=== PATIENT | male | born 1940 | race Caucasian/White ===

== ENCOUNTER 2018-05-24 21:31 | Inpatient (IN) | payer BC, MEDICARE ==
--- NOTE | 2018-05-24 21:42 | ERNOTE ---
Dyspnea - General Presenting Symptoms: shortness of breath Time Seen by Provider: 05/24/18 21:31 Source: patient, EMS Exam Limitations: no limitations - Immun/Allergies/Home Medications Immunizations: IMMUNIZATION HX Immunizations Up to Date unsure Allergies/Adverse Reactions: Allergies No Known Allergies Allergy (Verified 05/24/18 21:45) Home Medications: HOME MEDICATIONS Aspirin 81 mg PO DAILY 01/05/16 [Last Taken Unknown] Albuterol Sulfate/Ipratropium [Duoneb 2.5-0.5MG/3ML Soln] 3 ml IH QID PRN 05/24/18 [Last Taken Unknown] Amlodipine Besylate 10 mg PO DAILY 05/24/18 [Last Taken Unknown] Aspirin 81 mg PO DAILY 05/24/18 [Last Taken Unknown] Donepezil HCl [Aricept] 10 mg PO DAILY 05/24/18 [Last Taken Unknown] Escitalopram Oxalate [Lexapro] 10 mg PO DAILY 05/24/18 [Last Taken Unknown] Gabapentin [Neurontin] 600 mg PO BID 05/24/18 [Last Taken Unknown] Labetalol HCl [Trandate] 50 mg PO DAILY 05/24/18 [Last Taken Unknown] Vitamin B12 100 mg PO DAILY 05/24/18 [Last Taken Unknown] levETIRAcetam [Levetiracetam] 500 mg PO BID 05/24/18 [Last Taken Unknown] - History of Present Illness Narrative: Pt has had a cough for 10-14 days and today worsened. His daughter realized he had a temp and she found to be 106 f. EMS were called and found a temp of 104 f temporally. They applied ice packs and upon arrival his temp is 101.7 f (38.7 C). SaO2 upon EMS arrival at his house was 89-90 %, EMS applied 2L per NC and he is 94% upon arrival. Severity: moderate Treatment [employer]: paramedics Initiating event: Reports: upper resp illness Frequency of episodes: Reports: occassional episodes Modifying Factors - (Improves): Reports: oxygen Modifying Factors (Worsens): Reports: activity Associated Symptoms-Dyspnea: Denies: chest pain/discomfort, dizziness Review of Systems - Review of Systems Constitutional: Present: recent illness. Absent: fever - before today, chills EYE: Absent: vision changes ENT: Present: nose congestion, nasal drainage Respiratory: Present: shortness of breath, cough Cardiology: Absent: chest pain, palpitations Gastrointestinal/Abdominal: Absent: nausea, vomiting, abdominal pain Genitourinary: Absent: frequency, pain, dysuria Musculoskeletal: Absent: back pain, muscle pain Skin: Absent: rash Endocrine: Absent: excessive sweating, flushing Medical History (Last Updated 05/24/18 @ 21:53 by Emmanuelle Mobley, RN) History of COPD History of abdominal aortic aneurysm (AAA) History of dementia Hx of fracture of hip Hx of primary hypertension Hx of seizure disorder hx of hemmorrhagic stroke Surgical History: Surgical History (Last Updated 05/24/18 @ 21:53 by Emmanuelle Mobley, RN) History of AAA (abdominal aortic aneurysm) repair History of tonsillectomy and adenoidectomy Hx of right knee surgery Family History: Family History (Last Updated 05/24/18 @ 21:53 by Emmanuelle Mobley, RN) Other No pertinent family history Social History: Preferred Language Djiboutian Smoking Status Former smoker Abuse History No History of abuse Psych History No pertinent hx No Social History Section defined Physical Exam - Physical Exam General Appearance: Present: wd/wn, alert, no apparent distress Head Exam: Present: normal inspection, no evidence of injury Neck: Present: normal inspection, nontender, supple Respiratory: Present: no respiratory distress, no accessory muscle use, wheezing - expiratory occasional. Absent: chest tenderness Cardiovascular/Chest: Present: regular rate, rhythm, no murmur Gastrointestinal/Abdominal: Present: normal bowel sounds, nontender, nondistended Back Exam: Present: normal inspection, normal range of motion, no vertebral tenderness Extremity Exam: Present: normal inspection, normal range of motion, no edema Neurological Exam: Present: alert, oriented, normal mood/affect, no lynda r/sensory deficits Skin Exam: Present: normal color, warm/dry Lymphatic Exam: Present: no adenopathy ED Progress - Results and Orders Patient's Lab Results:: I have reviewed the patient's lab results. Results and Orders: Laboratory Tests 05/24/18 05/24/18 22:04 22:04 WBC 23.5 H Hgb 16.1 Hct 47.5 Plt Count 143 L Neutrophils % (Manual) 79 H Sodium 137 Potassium 4.4 Chloride 102 BUN 25 H Creatinine 1.53 H Random Glucose 138 H Calcium 8.7 Total Bilirubin 0.9 AST 30 ALT 26 Alkaline Phosphatase 102 B-Natriuretic Peptide 2597 H Total Protein 7.3 Albumin 3.6 Laboratory Tests 05/24/18 22:28 Lactic Acid, Venous 1.6 - Vital Signs Patient's Vital Signs:: I have reviewed the patient's vital signs. - EKG EKG: NSR, RBBB, unchanged from - 08/07/2014 EKG read: Interp. by me - X-Ray X-Ray #1 X-Ray: chest Interpretation: Interp. by me X-ray Comments: LORI infiltrate with mild vascular congestion. - Progress/Reassessment Progress:: Improved Progress Note-Subjective: 05/24/18 22:56 Spoke with the patient and family and they agree with admit. Spoke with Dr. Carter and she agrees with admit and planned treatment. Departure Clinical Impression: Pneumonia Qualifiers: Pneumonia type: due to unspecified organism Laterality: left Lung location: upper lobe of lung Qualified Code(s): J18.1 - Lobar pneumonia, unspecified organism Pulmonary edema Qualifiers: Chronicity: acute Qualified Code(s): J81.0 - Acute pulmonary edema - Departure Disposition: Still a patient Condition: Fair
[2018-05-24] MEDS ORDERED: ALBUTEROL SULFATE/IPRATROPIUM 3 ML NEBU IH ONE ×2 (21:51→21:55)
[2018-05-24 22:06] LABS: Hematocrit 47.5 % (42.0-52.0); Hemoglobin 16.1 gm/dL (13.5-18.0); Mean Cell Volume 92.2 fl (78-100); Mean Corpuscular Hemoglobin 31.3 pg (27-31); Mean Corpuscular Hgb Conc 33.9 g/dl (32-36); Mean Platelet Volume 9.7 fl (8-11.3); Platelet Count 143 K/mm3 (150-450); Red Blood Count 5.15 M/mm3 (4.7-6.0); Red Cell Distribution Width 13.2 % (11.5-14.0); White Blood Count 23.5 K/mm3 (4.0-10.5)
[2018-05-24 22:27] LABS: Albumin * 3.6 gm/dl (3.4-5.0); Anion Gap 13.3 mmol/L (6.8-13.8); BUN/Creatinine Ratio 16.3 (9.0-21.6); Bilirubin, Total 0.9 mg/dL (0.0-1.1); Ca. Corrected For Albumin 8.7 mg/dL (8.4-10.2); Calcium * 8.7 mg/dL (7.9-10.9); Carbon Dioxide 26.1 mmol/L (24-32.6); Potassium 4.4 mmol/L (3.4-4.6); Total Protein 7.3 gm/dL (6.2-8.2)
[2018-05-24 22:28] LABS: Total Cells Counted 100
[2018-05-24 22:30] LABS: Band 9 % (0-2.0); Lymphocyte 4 % (20-51); Monocyte 8 % (0-9); Neutrophil 79 % (42-75); Neutrophil # 18.6 K/mm3 (1.3-6.0); Platelet Estimate Decreased (NORMAL)
[2018-05-24 22:31] LABS: Dohle Bodies 1+
[2018-05-24] MEDS ORDERED: ACETAMINOPHEN 325 MG TABLET PO ONE (22:48)
[2018-05-24] MEDS ORDERED: ACETAMINOPHEN 325 MG TABLET ONE (22:51)
[2018-05-24] MEDS ORDERED: FUROSEMIDE 10 MG/ML VIAL ONE (23:00)
[2018-05-24] MEDS ORDERED: FUROSEMIDE 10 MG/ML VIAL IV ONE (23:00)
[2018-05-24] MEDS ORDERED: DOXYCYCLINE HYCLATE 100 MG in DEXTROSE 5 % IN WATER 100 ML IV SCH ×2 (23:15)
[2018-05-24] MEDS: NORMAL SALINE 1,000 ML IV PRN (23:35)
[2018-05-25] MEDS ORDERED: guaiFENesin 100 MG/5 ML BTL PO PRN (10:53)
[2018-05-25] MEDS ORDERED: ALBUTEROL SULFATE/IPRATROPIUM 3 ML NEBU IH PRN (10:58)
[2018-05-25] MEDS ORDERED: DONEPEZIL HCL 10 MG TABLET PO SCH (11:00)
--- NOTE | 2018-05-25 11:14 | HP ---
Chief Complaint - Chief Complaint Date of Service: 05/25/18 Time of Service: 11:02 Chief Complaint: I have a high fever and cough History of Present Illness: 78 y/o male with PMHx of COPD, Nicotine dependenc, AAA, Dementia, HTN, seizure disorder, Old hem. CVA, was to ER in an ambulance rubnes to progressive productive cough of white creamy sputum, several episodes of fever with temps reaching 106 last night. Px had to be treated with cooling measures when EMS arrived, and had to be administed O2 due to low saturation ranging 89-90% on room air. Px lives alone and was discovered by his daughter in the previously stated state, and EMS was called. Px has had various episodes of BKP requiring hospitalization. Medical History (Last Reviewed 05/25/18 @ 00:11 by Marcelina Noriega RN) Cerebral amyloid angiopathy History of COPD History of abdominal aortic aneurysm (AAA) History of dementia Hx of fracture of hip Hx of primary hypertension Hx of seizure disorder hx of hemmorrhagic stroke Surgical History: Surgical History (Last Reviewed 05/25/18 @ 00:11 by Marcelina Noriega RN) History of AAA (abdominal aortic aneurysm) repair History of tonsillectomy and adenoidectomy Hx of right knee surgery Family History: Family History (Last Updated 05/25/18 @ 00:13 by Marcelina Noriega RN) Sister Breast cancer Mother Hyperthyroidism Mother Heart problem Social History: Patient Lives/Resources Home Utilized Occupation Retired Preferred Language Yoruba Do you have any gnosticist or No cultural preference? Smoking Status Former smoker Have you smoked in the past 12 No months Do you dip or chew tobacco No Abuse History No History of abuse Psych History No pertinent hx Alcohol Use none Drug Use none No Social History Section defined Peds Patient Hx - Developmental: No Pertinent Hx Peds Patient Hx - Medical: No Pertinent Hx Peds Patient Hx - Cardiac/Respiratory: No Pertinent Hx Peds Patient Hx - Surgical: No Surgical History Patient History - Cancer: No Hx of Cancer Review Of Systems (GEN) - Review of Systems Generalized/Overall Review: Present: Weakness, Chills, Fever, Malaise EENTM: Present: No Symptoms Reported Respiratory: Present: Cough, Wheezing Cardiac: Present: No Symptoms Reported Abdominal: Present: No Symptoms Reported Genitourinary: Present: No Symptoms Reported Musculoskeletal: Present: No Symptoms Reported Neurological: Present: No Symptoms Reported Skin: Present: No Symptoms Reported Endocrine: Present: No Symptoms Reported Misc: All systems neg except as marked Immunizations: IMMUNIZATION HX Immunizations Up to Date Yes History of Influenza Vaccine No Allergies/Adverse Reactions: Allergies Allergy/AdvReac Type Severity Reaction Status Date / Time No Known Allergies Allergy Verified 05/24/18 21:45 Home Medications: HOME MEDICATIONS Albuterol Sulfate/Ipratropium [Duoneb 2.5-0.5MG/3ML Soln] 3 ml IH QID PRN 05/24/18 [Last Taken Unknown] Amlodipine Besylate 10 mg PO DAILY 05/24/18 [Last Taken Unknown] Aspirin 81 mg PO DAILY 05/24/18 [Last Taken Unknown] Donepezil HCl [Aricept] 10 mg PO DAILY 05/24/18 [Last Taken Unknown] Escitalopram Oxalate [Lexapro] 10 mg PO DAILY 05/24/18 [Last Taken Unknown] Labetalol HCl [Trandate] 50 mg PO BID 05/24/18 [Last Taken Unknown] levETIRAcetam [Levetiracetam] 500 mg PO BID 05/24/18 [Last Taken Unknown] Cyanocobalamin (Vitamin B-12) [Vitamin B12] 100 mg PO DAILY 05/25/18 [Last Taken Unknown] Gabapentin [Neurontin] 600 mg PO BID 05/25/18 [Last Taken Unknown] Exam - Exam Vital Signs: Vital Signs - Last Taken Temp 36.3 C 05/25/18 10:00 Pulse 70 05/25/18 10:00 Resp 20 05/25/18 10:00 BP 162/90 H 05/25/18 10:00 Pulse Ox 95 05/25/18 10:00 Constitutional: Present: Alert, Oriented x3, Cooperative, Well developed, Well nourished, Mild distress, Elderly Eye Exam: bilateral eye: normal inspection, PERRL, EOMI Neck: Present: non-tender, full range of motion, supple, normal inspection, trachea midline Back Exam: Present: normal inspection, no CVA tenderness, no vertebral tenderness Breasts: Present: Exam deferred Respiratory: Present: no respiratory distress, no accessory muscle use, decreased breath sounds, rhonchi, wheezing Cardiovascular/Chest: Present: normal peripheral pulses, regular rate, rhythm, no chest tenderness, no edema, no gallop, no JVD, no murmur Peripheral Pulses: carotid (R): 3+, carotid (L): 3+, femoral (R): 3+, femoral (L): 3+, dorsalis-pedis (R): 3+, dorsalis-pedis (L): 3+ Abdomen: Present: Normal bowel sounds, soft, nontender, nondistended, no rebound tenderness, no hepatospenomegaly, no masses - long. surgical scar in mid abdomen. AAA repair. 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, no motor/sensory deficits Appearance: Present: appropriate appearance Eye contact: Present: cooperative, good eye contact, normal speech Thoughts: Present: normal thought pattern, no apparent hallucination Diagnostic Studies: Abnormal Lab Results 05/24/18 05/24/18 Range/Units 22:04 22:04 WBC 23.5 H (4.0-10.5) K/mm3 MCH 31.3 H (27-31) pg Plt Count 143 L (150-450) K/mm3 Neutrophils % (Manual) 79 H (42-75) % Band Neuts % (Manual) 9 H (0-2.0) % Lymphocytes % (Manual) 4 L (20-51) % Neutrophils # (Manual) 18.6 H (1.3-6.0) K/mm3 Lymphocytes # (Manual) 0.9 L (1.5-3.5) k/mm3 Monocytes # (Manual) 1.9 H (0.0-1.0) k/mm3 Platelet Estimate Decreased L (NORMAL) BUN 25 H (6-23) mg/dL Creatinine 1.53 H (0.4-1.4) mg/dL Est GFR (Non-Af Amer) 47 L (60-130) mL/min Random Glucose 138 H (70-110) mg/dL B-Natriuretic Peptide 2597 H (5-650) pg/mL Laboratory Results WBC 23.5 K/mm3 (4.0-10.5) H 05/24/18 22:04 RBC 5.15 M/mm3 (4.7-6.0) 05/24/18 22:04 Hgb 16.1 gm/dL (13.5-18.0) 05/24/18 22:04 Hct 47.5 % (42.0-52.0) 05/24/18 22:04 MCV 92.2 fl (78-100) 05/24/18 22:04 MCH 31.3 pg (27-31) H 05/24/18 22:04 MCHC 33.9 g/dl (32-36) 05/24/18 22:04 RDW 13.2 % (11.5-14.0) 05/24/18 22:04 Plt Count 143 K/mm3 (150-450) L 05/24/18 22:04 MPV 9.7 fl (8-11.3) 05/24/18 22:04 Neutrophils % (Manual) 79 % (42-75) H 05/24/18 22:04 Band Neuts % (Manual) 9 % (0-2.0) H 05/24/18 22:04 Lymphocytes % (Manual) 4 % (20-51) L 05/24/18 22:04 Monocytes % (Manual) 8 % (0-9) 05/24/18 22:04 Neutrophils # (Manual) 18.6 K/mm3 (1.3-6.0) H 05/24/18 22:04 Lymphocytes # (Manual) 0.9 k/mm3 (1.5-3.5) L 05/24/18 22:04 Monocytes # (Manual) 1.9 k/mm3 (0.0-1.0) H 05/24/18 22:04 Toxic Vacuolation 1+ 05/24/18 22:04 Dohle Bodies 1+ 05/24/18 22:04 Platelet Estimate Decreased (NORMAL) L 05/24/18 22:04 Sodium 137 mmol/L (132-142) 05/24/18 22:04 Plasma Sodium 138 mmol/L (130-142) 05/24/18 22:04 Potassium 4.4 mmol/L (3.4-4.6) 05/24/18 22:04 Chloride 102 mmol/L (97-106) 05/24/18 22:04 Carbon Dioxide 26.1 mmol/L (24-32.6) 05/24/18 22:04 Anion Gap 13.3 mmol/L (6.8-13.8) 05/24/18 22:04 BUN 25 mg/dL (6-23) H 05/24/18 22:04 Creatinine 1.53 mg/dL (0.4-1.4) H 05/24/18 22:04 Est GFR (Non-Af Amer) 47 mL/min (60-130) L 05/24/18 22:04 BUN/Creatinine Ratio 16.3 (9.0-21.6) 05/24/18 22:04 Random Glucose 138 mg/dL (70-110) H 05/24/18 22:04 Lactic Acid, Venous 1.6 mmol/L (0.4-2.0) 05/25/18 01:25 Calcium 8.7 mg/dL (7.9-10.9) 05/24/18 22:04 Calcium Adj for Albumin 8.7 mg/dL (8.4-10.2) 05/24/18 22:04 Total Bilirubin 0.9 mg/dL (0.0-1.1) 05/24/18 22:04 AST 30 U/L (0-48) 05/24/18 22:04 ALT 26 U/L (19-67) 05/24/18 22:04 Alkaline Phosphatase 102 U/L (50-170) 05/24/18 22:04 B-Natriuretic Peptide 2597 pg/mL (5-650) H 05/24/18 22:04 Total Protein 7.3 gm/dL (6.2-8.2) 05/24/18 22:04 Albumin 3.6 gm/dl (3.4-5.0) 05/24/18 22:04 Assessment/Plan - Narrative Narrative: Px was admitted to inpatient workman for treatment with IV antibiotics, IV hydration, O2 therapy, and culture directed therapy. We will monitor him closely and continue his routine meds. - Assessment/Plan (1) Left upper lobe pneumonia Problem: Acute (2) Hypoxemia Problem: Acute (3) COPD (chronic obstructive pulmonary disease) Problem: Chronic
[2018-05-25] MEDS: LEVOFLOXACIN IN DEXTROSE 5 % 750 MG/150 ML BAG IV SCH (11:37)
[2018-05-25] MEDS: FAMOTIDINE 20 MG in DEXTROSE 5 % IN WATER 100 ML IV SCH ×4 (11:37→23:19)
[2018-05-25] MEDS: LABETALOL HCL 100 MG TABLET PO SCH ×2 (11:37→20:34)
[2018-05-25] MEDS: amLODIPine BESYLATE 10 MG TABLET PO SCH (11:38)
[2018-05-25] MEDS: levETIRAcetam 500 MG TABLET PO SCH ×2 (11:38→20:33)
[2018-05-25] MEDS: GABAPENTIN 600 MG TABLET PO SCH ×2 (11:38→20:34)
[2018-05-25] MEDS: ESCITALOPRAM OXALATE 10 MG TAB PO SCH (11:38)
[2018-05-25] MEDS: ENOXAPARIN SODIUM 40 MG/0.4 ML SYRG SC SCH (11:38)
[2018-05-25] MEDS: ASPIRIN 81 MG TAB.CHEW PO SCH (11:39)
[2018-05-25] MEDS: CYANOCOBALAMIN 100 MG PO SCH (11:39)
[2018-05-25] MEDS: ACETAMINOPHEN 500 MG TABLET PO PRN (20:33)
[2018-05-26] MEDS: NORMAL SALINE 1,000 ML IV PRN (03:58)
[2018-05-26] MEDS: ESCITALOPRAM OXALATE 10 MG TAB PO SCH (11:16)
[2018-05-26] MEDS: MEMANTINE HCL 10 MG TABLET PO SCH ×2 (11:16→21:01)
[2018-05-26] MEDS: LABETALOL HCL 100 MG TABLET PO SCH ×3 (11:16→21:01)
[2018-05-26] MEDS: amLODIPine BESYLATE 10 MG TABLET PO SCH (11:16)
[2018-05-26] MEDS: levETIRAcetam 500 MG TABLET PO SCH ×2 (11:17→21:00)
[2018-05-26] MEDS: ASPIRIN 81 MG TAB.CHEW PO SCH (11:17)
[2018-05-26] MEDS: CYANOCOBALAMIN 100 MG PO SCH (11:17)
[2018-05-26] MEDS: GABAPENTIN 600 MG TABLET PO SCH ×2 (11:17→21:01)
[2018-05-26] MEDS: DOCUSATE SODIUM 100 MG CAPSULE PO SCH (11:17)
[2018-05-26] MEDS: ENOXAPARIN SODIUM 40 MG/0.4 ML SYRG SC SCH (11:22)
[2018-05-26] MEDS: FAMOTIDINE 20 MG in DEXTROSE 5 % IN WATER 100 ML IV SCH ×4 (11:25→23:55)
[2018-05-26] MEDS: LEVOFLOXACIN IN DEXTROSE 5 % 750 MG/150 ML BAG IV SCH (11:49)
[2018-05-26 12:14] LABS: Hematocrit 47.4 % (42.0-52.0); Hemoglobin 15.6 gm/dL (13.5-18.0); Mean Cell Volume 93.3 fl (78-100); Mean Corpuscular Hemoglobin 30.7 pg (27-31); Mean Corpuscular Hgb Conc 32.9 g/dl (32-36); Mean Platelet Volume 10.5 fl (8-11.3); Neutrophil # 9.8 K/mm3 (1.3-6.0); Neutrophil % 80.9 % (42-75.0); Platelet Count 143 K/mm3 (150-450); Red Blood Count 5.08 M/mm3 (4.7-6.0); Red Cell Distribution Width 13.1 % (11.5-14.0); White Blood Count 12.1 K/mm3 (4.0-10.5)
--- NOTE | 2018-05-26 16:07 | PN ---
Subjective - Date and Time Seen Date: 05/26/18 Time: 15:42 Subjective Narrative: I feel better, but I fell while going to the bathroom. Objective Objective Narrative: 78 y/o male admitted for Left upper lobe pneumonia was evaluated at bedside and was found to be afebrile and in no acute distress. Px has shown improvement since being admitted to the workman. His cough has improved, he reports it is less frequent and now nonproductive. He has not had any recurrence of fever and is saturation adequately on room air. Px had a fall yesterday while ambulating to the bathroom in his room. He reports that after using the bathroom, he turned around to open the door to exit but lost his balance and fell on his right side. Patient was evaluated, Xrays of bilateral hips, khushboo. femurs, and of right flank were ordered. A nondisplaced fracture of the ninth rib was discovered. Pain medication was administered and patient will be observed. - Review of Systems Generalized/Overall Review: Reports: No Symptoms Reported EENTM: Reports: No Symptoms Reported Respiratory: Reports: Cough Cardiac: Reports: No Symptoms Reported Abdominal: Reports: No Symptoms Reported Genitourinary Symptoms: Reports: No Symptoms Reported Musculoskeletal Complaints: Reports: Other - Right flank pain Neurological: Reports: No Symptoms Reported Skin: Reports: No Symptoms Reported Endocrine: Reports: No Symptoms Reported Misc: All systems neg except as marked - Vitals Vitals: Last Vital Signs Temp 36.7 C 05/26/18 15:25 Pulse 76 05/26/18 15:25 Resp 16 05/26/18 15:25 BP 149/98 H 05/26/18 15:25 Pulse Ox 95 05/26/18 15:25 - Abnormal Lab Findings Abnormal Lab Findings: Abnormal Lab Results 05/26/18 Range/Units 11:59 WBC 12.1 H D (4.0-10.5) K/mm3 Plt Count 143 L (150-450) K/mm3 Immature Gran % (Auto) 0.50 H (0.001-0.429) % Immature Gran # (Auto) 0.06 H (0.000-0.0310) K/mm3 Neutrophils % 80.9 H (42-75.0) % Lymphocytes % 8.7 L (20-51) % Monocytes % 9.4 H (0.0-9) % Neutrophils # 9.8 H (1.3-6.0) K/mm3 Lymphocytes # 1.06 L (1.5-3.5) k/mm3 Monocytes # 1.1 H (0.0-1.0) k/mm3 - EKG/Xray Findings XRAY: ribs - Nondisplaced fracture of right ninth rib. - Exam Constitutional: Present: Alert, Oriented x3, Cooperative, Well developed, Well nourished, No distress ENT Exam: Present: normal ENT inspection, hearing grossly normal, pharynx normal, TMs normal Neck: Present: non-tender, full range of motion, supple, normal inspection, trachea midline Breasts: Present: Exam deferred Respiratory: Present: decreased breath sounds - On left upper lobe Cardiovascular/Chest: Present: normal peripheral pulses, regular rate, rhythm, no edema, no gallop, no JVD, no murmur, no rub, chest tender, other - Right flank tenderness Abdomen: Present: Normal bowel sounds, soft, nontender, nondistended, no rebound tenderness, no hepatospenomegaly, no masses, obese /Rectal: Present: Exam deferred Extremity: Present: normal range of motion, non-tender, normal inspection, no pedal edema, no calf tenderness, normal capillary refill Skin Exam: Present: normal color, warm/dry, no cyanosis Lymphatic: Present: no adenopathy 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 We will continue with IV hydration, IV antibiotics, and analgesics for right flank pain. - Problems/Diagnosis (1) Left upper lobe pneumonia Problem: Acute (2) Hypoxemia Problem: Acute (3) COPD (chronic obstructive pulmonary disease) Problem: Chronic (4) Rib fracture Problem: Acute (5) Closed traumatic nondisplaced fracture of rib Problem: Acute (6) Traumatic closed nondisplaced fracture of rib of right side with routine healing Problem: Acute (7) Fall Problem: Acute
[2018-05-26] MEDS ORDERED: LISINOPRIL 5 MG TABLET PO ONE ×2 (16:09→18:00)
[2018-05-26] MEDS ORDERED: [UNRECOGNIZED DRUG - OTHER] IV ONE (16:10)
[2018-05-26] MEDS: ACETAMINOPHEN 500 MG TABLET PO PRN (21:07)
[2018-05-27 05:26] LABS: Hematocrit 44.9 % (42.0-52.0); Hemoglobin 14.7 gm/dL (13.5-18.0); Mean Cell Volume 93.3 fl (78-100); Mean Corpuscular Hemoglobin 30.6 pg (27-31); Mean Corpuscular Hgb Conc 32.7 g/dl (32-36); Mean Platelet Volume 10.1 fl (8-11.3); Neutrophil # 5.3 K/mm3 (1.3-6.0); Platelet Count 157 K/mm3 (150-450); Red Blood Count 4.81 M/mm3 (4.7-6.0); Red Cell Distribution Width 12.9 % (11.5-14.0); White Blood Count 7.8 K/mm3 (4.0-10.5)
[2018-05-27 05:45] LABS: Albumin * 2.8 gm/dl (3.4-5.0); Anion Gap 11.6 mmol/L (6.8-13.8); BUN/Creatinine Ratio 16.7 (9.0-21.6); Bilirubin, Total 0.6 mg/dL (0.0-1.1); Ca. Corrected For Albumin 8.9 mg/dL (8.4-10.2); Calcium * 8.3 mg/dL (7.9-10.9); Carbon Dioxide 27.9 mmol/L (24-32.6); Potassium 3.5 mmol/L (3.4-4.6); Total Protein 6.3 gm/dL (6.2-8.2)
[2018-05-27] MEDS: DOCUSATE SODIUM 100 MG CAPSULE PO SCH (08:32)
[2018-05-27] MEDS: ESCITALOPRAM OXALATE 10 MG TAB PO SCH (08:32)
[2018-05-27] MEDS: levETIRAcetam 500 MG TABLET PO SCH (08:32)
[2018-05-27] MEDS: CYANOCOBALAMIN 100 MG PO SCH (08:32)
[2018-05-27] MEDS: ASPIRIN 81 MG TAB.CHEW PO SCH (08:32)
[2018-05-27] MEDS: LABETALOL HCL 100 MG TABLET PO SCH (08:32)
[2018-05-27] MEDS: amLODIPine BESYLATE 10 MG TABLET PO SCH (08:33)
[2018-05-27] MEDS: GABAPENTIN 600 MG TABLET PO SCH (08:33)
[2018-05-27] MEDS: MEMANTINE HCL 10 MG TABLET PO SCH (08:33)
[2018-05-27] MEDS: FAMOTIDINE 20 MG in DEXTROSE 5 % IN WATER 100 ML IV SCH ×2 (10:55)
[2018-05-27] MEDS: LEVOFLOXACIN IN DEXTROSE 5 % 750 MG/150 ML BAG IV SCH (11:27)
--- NOTE | 2018-05-27 13:36 | DS ---
(1) Left upper lobe pneumonia Problem: Resolved (2) Hypoxemia Problem: Resolved (3) COPD (chronic obstructive pulmonary disease) Problem: Chronic (4) Rib fracture Problem: Acute Qualifiers: Rib fracture type: single rib (5) Closed traumatic nondisplaced fracture of rib Problem: Acute (6) Traumatic closed nondisplaced fracture of rib of right side with routine healing Problem: Acute (7) Fall Problem: Acute Description of Stay: 78 y/o male admitted for Left upper lobe pneumonia, and COPD exacerbation was evaluated at bedside and found to have responded favorably to treatment with IV antibiotics, IV hydration, O2 therapy, and his routine meds. Px's cough has improved, fever has not recurred, and WBCs have decreased to normal levels. Px reports feeling much better. Px fell during the hospitalization while going to the bathroom and endured a nondisplaced 9th right rib fracture, which was managed with analgesics. He reports improvement of his right flank pain. He is being discharged with 5 additional days off oral ant ibiotics. Mr. Ming Reynolds is confined to the home due to dementia and lack of balance. The need for fdc is required for medication monitoring and education as well as vital signs and O2 sat monitoring. The need for home health care skilled services is directly related to the time spent face to face with the person. Procedures Performed: none Results and Findings: Pending Mircobiology Results 05/26/18 17:50 Expectorate Sputum Sputum Culture - Preliminary No Growth 05/24/18 22:55 Blood Blood Culture - Preliminary NO GROWTH AFTER 48 HOURS 05/24/18 22:00 Blood Blood Culture - Preliminary NO GROWTH AFTER 48 HOURS Lab Pending Results 05/24/18 22:04: WBC 23.5 H, RBC 5.15, Hgb 16.1, Hct 47.5, MCV 92.2, MCH 31.3 H, MCHC 33.9, RDW 13.2, Plt Count 143 L, MPV 9.7, Neutrophils % (Manual) 79 H, Band Neuts % (Manual) 9 H, Lymphocytes % (Manual) 4 L, Monocytes % (Manual) 8, Neutrophils # (Manual) 18.6 H, Lymphocytes # (Manual) 0.9 L, Monocytes # (Manual) 1.9 H, Toxic Vacuolation 1+, Dohle Bodies 1+, Platelet Estimate Decreased L 05/24/18 22:04: Sodium 137, Plasma Sodium 138, Potassium 4.4, Chloride 102, Carbon Dioxide 26.1, Anion Gap 13.3, BUN 25 H, Creatinine 1.53 H, Est GFR (Non- Af Amer) 47 L, BUN/Creatinine Ratio 16.3, Random Glucose 138 H, Calcium 8.7, Calcium Adj for Albumin 8.7, Total Bilirubin 0.9, AST 30, ALT 26, Alkaline Phosphatase 102, B-Natriuretic Peptide 2597 H, Total Protein 7.3, Albumin 3.6 05/24/18 22:28: Lactic Acid, Venous 1.6 05/25/18 01:25: Lactic Acid, Venous 1.6 05/26/18 11:59: WBC 12.1 H D, RBC 5.08, Hgb 15.6, Hct 47.4, MCV 93.3, MCH 30.7, MCHC 32.9, RDW 13.1, Plt Count 143 L, MPV 10.5, Immature Gran % (Auto) 0.50 H, Immature Gran # (Auto) 0.06 H, Neutrophils % 80.9 H, Lymphocytes % 8.7 L, Monocytes % 9.4 H, Eosinophils % 0.3, Basophils % 0.2, Nucleated RBC % 0.0, Neutrophils # 9.8 H, Lymphocytes # 1.06 L, Monocytes # 1.1 H, Eosinophils # 0.0, Absolute Basophils 0.0 05/27/18 05:00: Sodium 137, Plasma Sodium 137, Potassium 3.5 D, Chloride 101, Carbon Dioxide 27.9, Anion Gap 11.6, BUN 22, Creatinine 1.32, Est GFR (Non-Af Amer) 55 L, BUN/Creatinine Ratio 16.7, Random Glucose 92 D, Calcium 8.3, Calcium Adj for Albumin 8.9, Total Bilirubin 0.6, AST 17, ALT 18 L, Alkaline Phosphatase 82, Total Protein 6.3, Albumin 2.8 L 05/27/18 05:00: WBC 7.8 D, RBC 4.81, Hgb 14.7, Hct 44.9, MCV 93.3, MCH 30.6, MCHC 32.7, RDW 12.9, Plt Count 157, MPV 10.1, Immature Gran % (Auto) 0.80 H, Immature Gran # (Auto) 0.06 H, Neutrophils % 68.0, Lymphocytes % 13.2 L, Monocytes % 14.3 H, Eosinophils % 3.2 H, Basophils % 0.5, Nucleated RBC % 0.0, Neutrophils # 5.3, Lymphocytes # 1.03 L, Monocytes # 1.1 H, Eosinophils # 0.3, Absolute Basophils 0.0 Discharge Location: Home Disposition: Home Health Service Home Health Agency: [facility] Home Health Condition: Good Face to Face Encounter completed per [facility] Guidelines: Yes Discharge Activity: Activity as tolerated Discharge Diet: General/regular food Referrals: Sean Paulino MD [Primary Care Provider] - Additional Patient Instructions (free text): -Please make TCM appointment unless [facility] discharge. Thank you! Lakeisha @ [phone]. -Patient's daughter choose home health agency tomorrow, fill out form on front of chart with selected agency, patient signature, and witness signature. Call referral and report to home care agency, fax orders and discharge information to agency. Ensure discharge summary includes necessary components. [facility]. Prescriptions (Any new or edited meds): Ibuprofen 400 mg PO Q8H PRN 5 Days #15 tablet PRN Reason: Pain Levofloxacin [Levaquin] 750 mg PO DAILY 5 Days #5 tablet Complete Home Medications List: Complete Home Medication List: Albuterol Sulfate/Ipratropium [Duoneb 2.5-0.5MG/3ML Soln] 3 ml IH QID PRN 05/24/18 Amlodipine Besylate 10 mg PO DAILY 05/24/18 Aspirin 81 mg PO DAILY 05/24/18 Escitalopram Oxalate [Lexapro] 10 mg PO DAILY 05/24/18 Labetalol HCl [Trandate] 50 mg PO BID 05/24/18 levETIRAcetam [Levetiracetam] 500 mg PO BID 05/24/18 Cyanocobalamin (Vitamin B-12) [Vitamin B12] 100 mg PO DAILY 05/25/18 Gabapentin [Neurontin] 600 mg PO BID 05/25/18 Memantine HCl 10 mg PO BID 05/25/18 Acetaminophen [Tylenol] 1,000 mg PO Q6H PRN tablet 05/27/18 Albuterol Sulfate/Ipratropium [Duoneb 2.5-0.5MG/3ML Soln] 3 ml IH QID PRN nebu 05/27/18 Docusate Sodium [Colace] 100 mg PO DAILY capsule 05/27/18 Ibuprofen 400 mg PO Q8H PRN 5 Days #15 tablet 05/27/18 Labetalol HCl [Trandate] 50 mg PO BID tablet 05/27/18 Levofloxacin [Levaquin] 750 mg PO DAILY 5 Days #5 tablet 05/27/18 amLODIPine BESYLATE [Norvasc] 10 mg PO DAILY tablet 05/27/18 guaiFENesin [Robitussin] 100 mg PO Q4H PRN btl 05/27/18
[2018-05-27 15:05] VITALS: BP 154/93
[2018-05-27] MEDS: ENOXAPARIN SODIUM 40 MG/0.4 ML SYRG SC SCH (16:00)
== END 2018-05-27 15:38 | disposition home health service (06) | DRG 193 ==
LOC: ER 21:31 → MS 23:02
PROVIDERS: ADMIT Family Medicine; ATTEND Family Medicine
CPT/HCPCS: 36415; 71010; 71045; 71100; 72170; 73552; 80053; 83519; 83605; 83880; 85025; 87040; 87070; 93005; 94640; 94664; 94760; 94762; 96365; 96375; 99285